=== PATIENT | male | born 2000 | race Caucasian/White ===

== ENCOUNTER 2022-11-04 19:14 | Inpatient (IN) | payer BC, MEDICAID ==
--- NOTE | 2022-11-04 19:54 | ED ---
General Adult HPI <Luca Fletcher - Last Filed: 11/05/22 11:12> - General Source: police Mode of arrival: ambulatory Limitations: no limitations <Bradley Joseph - Last Filed: 11/05/22 15:44> - General Chief complaint: Psychiatric Symptoms Stated complaint: suicidal,drank bleach Time Seen by Provider: 11/04/22 19:27 - History of Present Illness Initial comments: Dictation was produced using [email or web address] dictation software. please excuse any grammatical, word or spelling errors. Chief Complaint: 22-year-old male presents emergency department for attempted suicide History of Present Illness: 22-year-old nice petition by law enforcement. Patient allegedly held a knife to his neck. He states he wanted to kill himself because he is depressed. She feels suicidal. He tried to kill himself multiple times today according to law enforcement at the bedside. Patient also was able to drink approximately 2 ounces of bleach prior to being apprehended by law enforcement. Patient has any visual or auditory hallucinations. The ROS documented in this emergency department record has been reviewed and confirmed by me. Those systems with pertinent positive or negative responses henry ve been documented in the HPI. All other systems are other negative and/or noncontributory. PHYSICAL EXAM: General Impression: Alert and oriented x3, not in acute distress HEENT: Normocephalic atraumatic, extra-ocular movements intact, pupils equal and reactive to light bilaterally, mucous membranes moist. Cardiovascular: Heart regular rate and rhythm Chest: Able to complete full sentences, no retractions, no tachypnea Abdomen: abdomen soft, non-tender, non-distended, no organomegaly Musculoskeletal: Pulses present and equal in all extremities, no peripheral edema Motor: no focal deficits noted Neurological: CN II-XII grossly intact, no focal motor or sensory deficits noted Skin: Intact with no visualized rashes Psych: Flattened affect ED course: 22-year-old well-appearing male presents emergency department for suicidal attempt. Patient has no signs of traumatic injuries to his body. He did however report trach in approximately 2 ounces worth of bleach. He is not showing signs of respiratory distress. No abdominal pain. Nursing notes and chart review was performed Case is discussed with poison control recommended tox workup and 6 hour observation for GI and respiratory symptoms. My EKG interpretation: Ventricular rate 84, sinus rhythm,. Interval 171, QRS 114, QTc 47. No FL prolongation, no QTC prolongation, no ST or T-wave changes noted. . Overall, this EKG is unremarkable Was pt. sent in by a medical professional or institution (TALIA Hwang, LEAD ARCHITECT, urgent care, hospital, or fdc...) When possible be specific @ -Law enforcement Did you speak to anyone other than the patient for history (EMS, parent, family, police, friend...)? What history was obtained from this source @ -Law enforcement Did you review nursing and triage notes (agree or disagree)? Why? @ -I reviewed and agree with nursing and triage notes Were old charts reviewed (outside hosp., previous admission, EMS record, old EKG, old radiological studies, urgent care reports/EKG's, fdc records)? Report findings @ -No old charts were reviewed Differential Diagnosis (chest pain, altered mental status, abdominal pain women, abdominal pain men, vaginal bleeding, musculoskeletal, weakness, fever, dyspnea, syncope, headache, dizziness, GI bleed, back pain, seizure, CVA, palpatations, mental health)? @ -Differential Mental Health: Depression, anxiety, bipolar, psychosis, schizophrenia, borderline personality, situational depression, adjustment disorder, behavioral disorder, brain tumor, malingering, substance abuse, encephalopathy, medication reaction, dementia, hypothyroidism, degenerative neurologic disorder, lupus.... This is not meant to be all-inclusive list EKG interpreted by me (3pts min.). @ -See above X-rays interpreted by me (1pt min.). @ -None done CT interpreted by me (1pt min.). @ -None done U/S interpreted by me (1pt. min.). @ -None done What testing was considered but not performed or refused? (CT, X-rays, U/S, labs)? Why? @ -See above What meds were considered but not given or refused? Why? @ -See above Did you discuss the management of the patient with other professionals (professionals i.e. TALIA Hwang, LEAD ARCHITECT, lab, RT, psych nurse, outreach and education social worker, clam bed laborer, teacher, community services officer, rifle case repairer)? Give summary @ -Case discussed with poison control Was smoking cessation discussed for >3mins.? @ -No Was critical care preformed (if so, how long)? @ -33 minutes Were there social determinants of health that impacted care today? How? (Homelessness, low income, unemployed, alcoholism, drug addiction, transportation, low edu. Level, literacy, decrease access to med. care, long term, rehab)? @ -No Was there de-escalation of care discussed even if they declined (Discuss DNR or withdrawal of care, Hospice)? DNR status @ -No What co-morbidities impacted this encounter? (DM, HTN, Smoking, COPD, CAD, Cancer, CVA, ARF, Chemo, Hep., AIDS, mental health diagnosis, sleep apnea, morbid obesity)? @ -None Was patient admitted / discharged? Hospital course, mention meds given and route, prescriptions, significant lab abnormalities, going to OR and other pertinent info. @ -22 Year-old male presents emergency Department with law enforcement for psychiatric evaluation and caustic substance ingestion. Vital signs are within acceptable limits at baseline. Physical examination benign. Patient not showing signs of distress. Labs are unremarkable. Tox labs are negative. Patient will be observed in emergency department for 6 hours and then will be cleared for EPS evaluation. Undiagnosed new problem with uncertain prognosis? @ -No Drug Therapy requiring intensive monitoring for toxicity (Heparin, Nitro, Ins ulin, Cardizem)? @ -No Were any procedures done? @ -No Diagnosis/symptom? Acute, or Chronic, or Acute on Chronic? Uncomplicated (without systemic symptoms) or Complicated (systemic symptoms)? @ -1. Acute overdose, 2. Psychosis Side effects of treatment? @ -No Exacerbation, Progression, or Severe Exacerbation? @ -No Poses a threat to life or bodily function? How? (Chest pain, [place], [place], pneumonia, PE, COPD, DKA, ARF, appy, cholecystitis, CVA, Diverticulitis, Homicidal, Suicidal, threat to staff... and all critical care pts) @ -yes (Bradley Joseph) - Related Data Home Medications Medication Instructions Recorded Confirmed Dextroamphetamine Sulfate 20 mg PO DAILY 11/05/22 11/05/22 [Dexedrine] Escitalopram [Lexapro] 10 mg PO TID 11/05/22 11/05/22 Mirtazapine [Remeron] 15 mg PO HS 11/05/22 11/05/22 hydrOXYzine pamoate [Vistaril] 50 mg PO Q6H PRN 11/05/22 11/05/22 Allergies Allergy/AdvReac Type Severity Reaction Status Date / Time No Known Allergies Allergy Verified 11/05/22 09:35 Review of Systems ROS Other: All systems not noted in ROS Statement are negative. <Luca Fletcher - Last Filed: 11/05/22 11:12> ROS Other: All systems not noted in ROS Statement are negative. <Bradley Joseph - Last Filed: 11/05/22 15:44> ROS Statement: Those systems with pertinent positive or pertinent negative responses have been documented in the HPI. Past Medical History Past Medical History: No Reported History History of Any Multi-Drug Resistant Organisms: None Reported Past Surgical History: No Surgical Hx Reported Past Psychological History: Anxiety, Depression, PTSD Smoking Status: Never smoker Past Alcohol Use History: None Reported Past Drug Use History: None Reported <Bradley Joseph - Last Filed: 11/05/22 15:44> General Exam Limitations: no limitations <Bradley Joseph - Last Filed: 11/05/22 15:44> Course Vital Signs 11/04/22 11/05/22 19:15 07:05 Temperature 98.5 F Pulse Rate 60 Respiratory 20 16 Rate Blood Pressure 145/87 O2 Sat by Pulse 96 Oximetry Medical Decision Making - Lab Data Result diagrams: 11/04/22 20:08 11/04/22 20:08 <Luca Fletcher - Last Filed: 11/05/22 11:12> - Lab Data Result diagrams: 11/04/22 20:08 11/04/22 20:08 <Bradley Joseph - Last Filed: 11/05/22 15:44> - Medical Decision Making Was patient admitted / discharged? Hospital course, mention meds given and route, prescriptions, significant lab abnormalities, going to OR and other pertinent info. @ -Patient was signed out to me at 7 AM. Patient was going to be transferred to another facility but that authorization to admit the patient. EPS came down and admitted patient to this facility. Undiagnosed new problem with uncertain prognosis? @ -[No] Drug Therapy requiring intensive monitoring for toxicity (Heparin, Nitro, Insulin, Cardizem)? @ -[No] Were any procedures done? @ -[No] Diagnosis/symptom? @ -Depression, suicidal ideation Acute, or Chronic, or Acute on Chronic? @ -Acute Uncomplicated (without systemic symptoms) or Complicated (systemic symptoms)? @ -Complicated Side effects of treatment? @ -[No] Exacerbation, Progression, or Severe Exacerbation? @ -[No] Poses a threat to life or bodily function? How? (Chest pain, [place], MO, pneumonia, PE, COPD, DKA, ARF, appy, cholecystitis, CVA, Diverticulitis, Homicidal, Hussein icidal, threat to staff... and all critical care pts) @ -Yes patient could commit suicide. (Luca Fletcher) - Lab Data Lab Results 11/04/22 11/04/22 11/04/22 Range/Units 20:08 20:08 20:08 WBC 8.7 (3.8-10.6) k/uL RBC 5.03 (4.30-5.90) m/uL Hgb 14.8 (13.0-17.5) gm/dL Hct 43.6 (39.0-53.0) % MCV 86.6 (80.0-100.0) fL MCH 29.4 (25.0-35.0) pg MCHC 34.0 (31.0-37.0) g/dL RDW 13.2 (11.5-15.5) % Plt Count 317 (150-450) k/uL MPV 7.6 Neutrophils % 73 % Lymphocytes % 18 % Monocytes % 6 % Eosinophils % 1 % Basophils % 1 % Neutrophils # 6.3 (1.3-7.7) k/uL Lymphocytes # 1.5 (1.0-4.8) k/uL Monocytes # 0.5 (0-1.0) k/uL Eosinophils # 0.1 (0-0.7) k/uL Basophils # 0.1 (0-0.2) k/uL PT 11.2 (9.0-12.0) sec INR 1.1 (<1.2) APTT 24.0 (22.0-30.0) sec Sodium 141 (137-145) mmol/L Potassium 4.4 (3.5-5.1) mmol/L Chloride 105 (98-107) mmol/L Carbon Dioxide 25 (22-30) mmol/L Anion Gap 11 mmol/L BUN 8 L (9-20) mg/dL Creatinine 0.84 (0.66-1.25) mg/dL Est GFR (CKD-EPI)AfAm >90 (>60 ml/min/1.73 sqM) Est GFR (CKD-EPI)NonAf >90 (>60 ml/min/1.73 sqM) Glucose 91 (74-99) mg/dL Osmolality 296 (280-301) mosm/kg Plasma Lactic Acid Martinez (0.7-2.0) mmol/L Calcium 9.6 (8.4-10.2) mg/dL Total Bilirubin 0.9 (0.2-1.3) mg/dL AST 120 H (17-59) U/L ALT 162 H (4-49) U/L Alkaline Phosphatase 60 (38-126) U/L Total Protein 7.8 (6.3-8.2) g/dL Albumin 4.8 (3.5-5.0) g/dL Urine Color Urine Appearance (Clear) Urine pH (5.0-8.0) Ur Specific [place] (1.001-1.035) Urine Protein (Negative) Urine Glucose (UA) (Negative) Urine Ketones (Negative) Urine Blood (Negative) Urine Nitrite (Negative) Urine Bilirubin (Negative) Urine Urobilinogen (<2.0) mg/dL Ur Leukocyte Esterase (Negative) Salicylates <1.0 mg/dL Urine Opiates Screen (NotDetected) Ur Oxycodone Screen (NotDetected) Urine Methadone Screen (NotDetected) Ur Propoxyphene Screen (NotDetected) Acetaminophen <10.0 ug/mL Ur Barbiturates Screen (NotDetected) U Tricyclic Antidepress (NotDetected) Ur Phencyclidine Scrn (NotDetected) Ur Amphetamines Screen (NotDetected) U Methamphetamines Scrn (NotDetected) U Benzodiazepines Scrn (NotDetected) Urine Cocaine Screen (NotDetected) U Marijuana (THC) Screen (NotDetected) Serum Alcohol <10 mg/dL Coronavirus (PCR) (Not Detectd) 11/04/22 11/04/22 11/05/22 Range/Units 20:08 20:08 01:55 WBC (3.8-10.6) k/uL RBC (4.30-5.90) m/uL Hgb (13.0-17.5) gm/dL Hct (39.0-53.0) % MCV (80.0-100.0) fL MCH (25.0-35.0) pg MCHC (31.0-37.0) g/dL RDW (11.5-15.5) % Plt Count (150-450) k/uL MPV Neutrophils % % Lymphocytes % % Monocytes % % Eosinophils % % Basophils % % Neutrophils # (1.3-7.7) k/uL Lymphocytes # (1.0-4.8) k/uL Monocytes # (0-1.0) k/uL Eosinophils # (0-0.7) k/uL Basophils # (0-0.2) k/uL PT (9.0-12.0) sec INR (<1.2) APTT (22.0-30.0) sec Sodium (137-145) mmol/L Potassium (3.5-5.1) mmol/L Chloride (98-107) mmol/L Carbon Dioxide (22-30) mmol/L Anion Gap mmol/L BUN (9-20) mg/dL Creatinine (0.66-1.25) mg/dL Est GFR (CKD-EPI)AfAm (>60 ml/min/1.73 sqM) Est GFR (CKD-EPI)NonAf (>60 ml/min/1.73 sqM) Glucose (74-99) mg/dL Osmolality (280-301) mosm/kg Plasma Lactic Acid Martinez 1.0 (0.7-2.0) mmol/L Calcium (8.4-10.2) mg/dL Total Bilirubin (0.2-1.3) mg/dL AST (17-59) U/L ALT (4-49) U/L Alkaline Phosphatase (38-126) U/L Total Protein (6.3-8.2) g/dL Albumin (3.5-5.0) g/dL Urine Color Yellow Urine Appearance Clear (Clear) Urine pH 6.5 (5.0-8.0) Ur Specific [place] 1.021 (1.001-1.035) Urine Protein Trace H (Negative) Urine Glucose (UA) Negative (Negative) Urine Ketones 2+ H (Negative) Urine Blood Negative (Negative) Urine Nitrite Negative (Negative) Urine Bilirubin Negative (Negative) Urine Urobilinogen 3.0 (<2.0) mg/dL Ur Leukocyte Esterase Negative (Negative) Salicylates mg/dL Urine Opiates Screen Not Detected (NotDetected) Ur Oxycodone Screen Not Detected (NotDetected) Urine Methadone Screen Not Detected (NotDetected) Ur Propoxyphene Screen Not Detected (NotDetected) Acetaminophen ug/mL Ur Barbiturates Screen Not Detected (NotDetected) U Tricyclic Antidepress Not Detected (NotDetected) Ur Phencyclidine Scrn Not Detected (NotDetected) Ur Amphetamines Screen Detected H (NotDetected) U Methamphetamines Scrn Not Detected (NotDetected) U Benzodiazepines Scrn Not Detected (NotDetected) Urine Cocaine Screen Not Detected (NotDetected) U Marijuana (THC) Screen Not Detected (NotDetected) Serum Alcohol mg/dL Coronavirus (PCR) (Not Detectd) 11/05/22 Range/Units 02:10 WBC (3.8-10.6) k/uL RBC (4.30-5.90) m/uL Hgb (13.0-17.5) gm/dL Hct (39.0-53.0) % MCV (80.0-100.0) fL MCH (25.0-35.0) pg MCHC (31.0-37.0) g/dL RDW (11.5-15.5) % Plt Count (150-450) k/uL MPV Neutrophils % % Lymphocytes % % Monocytes % % Eosinophils % % Basophils % % Neutrophils # (1.3-7.7) k/uL Lymphocytes # (1.0-4.8) k/uL Monocytes # (0-1.0) k/uL Eosinophils # (0-0.7) k/uL Basophils # (0-0.2) k/uL PT (9.0-12.0) sec INR (<1.2) APTT (22.0-30.0) sec Sodium (137-145) mmol/L Potassium (3.5-5.1) mmol/L Chloride (98-107) mmol/L Carbon Dioxide (22-30) mmol/L Anion Gap mmol/L BUN (9-20) mg/dL Creatinine (0.66-1.25) mg/dL Est GFR (CKD-EPI)AfAm (>60 ml/min/1.73 sqM) Est GFR (CKD-EPI)NonAf (>60 ml/min/1.73 sqM) Glucose (74-99) mg/dL Osmolality (280-301) mosm/kg Plasma Lactic Acid Martinez (0.7-2.0) mmol/L Calcium (8.4-10.2) mg/dL Total Bilirubin (0.2-1.3) mg/dL AST (17-59) U/L ALT (4-49) U/L Alkaline Phosphatase (38-126) U/L Total Protein (6.3-8.2) g/dL Albumin (3.5-5.0) g/dL Urine Color Urine Appearance (Clear) Urine pH (5.0-8.0) Ur Specific [place] (1.001-1.035) Urine Protein (Negative) Urine Glucose (UA) (Negative) Urine Ketones (Negative) Urine Blood (Negative) Urine Nitrite (Negative) Urine Bilirubin (Negative) Urine Urobilinogen (<2.0) mg/dL Ur Leukocyte Esterase (Negative) Salicylates mg/dL Urine Opiates Screen (NotDetected) Ur Oxycodone Screen (NotDetected) Urine Methadone Screen (NotDetected) Ur Propoxyphene Screen (NotDetected) Acetaminophen ug/mL Ur Barbiturates Screen (NotDetected) U Tricyclic Antidepress (NotDetected) Ur Phencyclidine Scrn (NotDetected) Ur Amphetamines Screen (NotDetected) U Methamphetamines Scrn (NotDetected) U Benzodiazepines Scrn (NotDetected) Urine Cocaine Screen (NotDetected) U Marijuana (THC) Screen (NotDetected) Serum Alcohol mg/dL Coronavirus (PCR) Not Detected (Not Detectd) Disposition Time of Disposition: 11:12 <Luca Fletcher - Last Filed: 11/05/22 11:12> <Bradley Joseph - Last Filed: 11/05/22 15:44> Clinical Impression: Depression, Suicidal ideation Disposition: ADMITTED IP TO THIS HOSP
[2022-11-04 20:22] LABS: Basophils # (A) 0.1 k/uL (0-0.2); Basophils % (A) 1 %; Eosinophils # (A) 0.1 k/uL (0-0.7); Eosinophils % (A) 1 %; HCT 43.6 % (39.0-53.0); HGB 14.8 gm/dL (13.0-17.5); Lymphocytes # (A) 1.5 k/uL (1.0-4.8); Lymphocytes % (A) 18 %; MCH 29.4 pg (25.0-35.0); MCV 86.6 fL (80.0-100.0); Mean Platelet Volume 7.6; Monocytes # (A) 0.5 k/uL (0-1.0); Monocytes % (A) 6 %; Neutrophils # (A) 6.3 k/uL (1.3-7.7); Neutrophils % (A) 73 %; Platelet Count 317 k/uL (150-450); RBC 5.03 m/uL (4.30-5.90); RDW 13.2 % (11.5-15.5); WBC 8.7 k/uL (3.8-10.6)
[2022-11-04 20:38] LABS: ALT 162 U/L (4-49); AST 120 U/L (17-59); Acetaminophen <10.0 ug/mL; African American GFR (CKD) >90 (>60 ml/min/1.73 sqM); Albumin 4.8 g/dL (3.5-5.0); Alcohol <10 mg/dL; Alkaline Phosphatase 60 U/L (38-126); Anion Gap 11 mmol/L; Blood Urea Nitrogen 8 mg/dL (9-20); Calcium 9.6 mg/dL (8.4-10.2); Carbon Dioxide 25 mmol/L (22-30); Chloride 105 mmol/L (98-107); Glucose 91 mg/dL (74-99); Non-African American GFR(CKD) >90 (>60 ml/min/1.73 sqM); Potassium 4.4 mmol/L (3.5-5.1); Salicylate <1.0 mg/dL; Sodium 141 mmol/L (137-145); Total Bilirubin 0.9 mg/dL (0.2-1.3); Total Protein 7.8 g/dL (6.3-8.2)
[2022-11-04 20:48] LABS: INR 1.1 (<1.2); Prothrombin Time 11.2 sec (9.0-12.0)
[2022-11-04 21:05] LABS: Amphetamine Screen,Urine Detected (NotDetected); Barbiturate Screen,Urine Not Detected (NotDetected); Benzodiazepines Screen,Urine Not Detected (NotDetected); Cocaine Screen,Urine Not Detected (NotDetected); Methadone Screen, Urine Not Detected (NotDetected); Opiate Screen,Urine Not Detected (NotDetected); Oxycodone Screen, Urine Not Detected (NotDetected); Phencyclidine Screen,Urine Not Detected (NotDetected); Tricyclic Antidepressant,Urine Not Detected (NotDetected); Urn Cannabinoid Scrn Not Detected (NotDetected)
[2022-11-05 02:04] LABS: Appearance,Urine Clear (Clear); Bilirubin,Urine Negative (Negative); Blood,Urine Negative (Negative); Color,Urine Yellow; Glucose,Urine (UA) Negative (Negative); Ketones,Urine 2+ (Negative); Leukocyte Esterase,Urine Negative (Negative); Nitrite,Urine Negative (Negative); PH, Urine 6.5 (5.0-8.0); Protein,Urine Trace (Negative); Specific Gravity,Urine 1.021 (1.001-1.035)
[2022-11-05] MEDS ORDERED: MAGNESIUM HYDROXIDE 2,400 MG/10 ML CUP PO PRN (11:22)
[2022-11-05] MEDS ORDERED: MAG HYDROX/AL HYDROX/SIMETH 30 ML CUP PO PRN (11:22)
[2022-11-05] MEDS ORDERED: HALOPERIDOL LACTATE 5 MG/ML 1 ML VIAL IM PRN (11:22)
[2022-11-05] MEDS ORDERED: ACETAMINOPHEN TAB 325 MG TAB PO PRN (11:22)
[2022-11-05] MEDS ORDERED: LORazepam 2 MG/ML INJ IM PRN (11:24)
[2022-11-05] MEDS ORDERED: haloperidoL 5 MG TAB PO PRN (12:45)
[2022-11-05] MEDS ORDERED: haloperidoL 5 MG TAB PO SCH (13:00)
[2022-11-05] MEDS ORDERED: DULoxetine HCL 30 MG CAPSULE.DR PO SCH (14:45)
[2022-11-05] MEDS: LITHIUM CARBONATE 150 MG CAP PO SCH ×2 (16:30→20:14)
[2022-11-05] MEDS: SERTRALINE 50 MG TAB PO SCH (16:31)
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
--- NOTE | 2022-11-05 17:51 | P.PN ---
Progress Note - Text Progress Note Date: 11/05/22 Attempted to see patient on mental health unit at 1149 a.m. this morning, was informed by nursing staff that patient was unavailable to be evaluated by medical team at this time as he was with psychiatrist.
[2022-11-05] MEDS: MIRTAZAPINE 15 MG TAB PO SCH (20:14)
--- NOTE | 2022-11-06 01:01 | P.PN ---
Progress Note - Text Progress Note Date: 11/06/22 Attempted to see the patient in the mental health unit at 2100. The patient refused to be seen or be evaluated.
[2022-11-06 07:04] LABS: Basophils # (A) 0.1 k/uL (0-0.2); Basophils % (A) 1 %; Eosinophils # (A) 0.3 k/uL (0-0.7); Eosinophils % (A) 4 %; HCT 45.8 % (39.0-53.0); HGB 15.3 gm/dL (13.0-17.5); Lymphocytes # (A) 2.5 k/uL (1.0-4.8); Lymphocytes % (A) 36 %; MCH 29.3 pg (25.0-35.0); MCHC 33.3 g/dL (31.0-37.0); MCV 88.1 fL (80.0-100.0); Mean Platelet Volume 7.6; Monocytes # (A) 0.6 k/uL (0-1.0); Monocytes % (A) 8 %; Neutrophils # (A) 3.5 k/uL (1.3-7.7); Neutrophils % (A) 50 %; Platelet Count 317 k/uL (150-450); RDW 13.2 % (11.5-15.5); WBC 7.1 k/uL (3.8-10.6)
[2022-11-06 07:20] LABS: ALT 136 U/L (4-49); AST 87 U/L (17-59); African American GFR (CKD) >90 (>60 ml/min/1.73 sqM); Albumin 4.5 g/dL (3.5-5.0); Alkaline Phosphatase 57 U/L (38-126); Anion Gap 10 mmol/L; Blood Urea Nitrogen 7 mg/dL (9-20); Calcium 9.4 mg/dL (8.4-10.2); Carbon Dioxide 28 mmol/L (22-30); Chloride 105 mmol/L (98-107); Glucose 90 mg/dL (74-99); Non-African American GFR(CKD) >90 (>60 ml/min/1.73 sqM); Potassium 4.5 mmol/L (3.5-5.1); Sodium 143 mmol/L (137-145); Total Bilirubin 0.7 mg/dL (0.2-1.3); Total Protein 7.6 g/dL (6.3-8.2)
[2022-11-06] MEDS: LORazepam 1 MG TAB PO PRN (08:38)
[2022-11-06] MEDS: LITHIUM CARBONATE 150 MG CAP PO SCH ×2 (08:39→21:21)
[2022-11-06] MEDS: SERTRALINE 50 MG TAB PO SCH (08:39)
[2022-11-06] MEDS ORDERED: NICOTINE 14MG/24HR PATCH TRANSDERM SCH (09:00)
[2022-11-06] MEDS: hydrOXYzine pamoate 25 MG CAP PO PRN ×2 (09:58→20:21)
[2022-11-06 12:01] LABS: Chol/HDL Ratio 4.86 Ratio; LDL Cholesterol,Calculated 103.9 mg/dL (0.0-131.0)
[2022-11-06] MEDS: MIRTAZAPINE 15 MG TAB PO SCH (21:21)
--- NOTE | 2022-11-06 22:29 | P.CONS ---
History of Present Illness - Reason for Consult Consult date: 11/06/22 - History of Present Illness The patient is a 22-year-old male with a PMH of liver disease who was brought to the emergency room petitioned by the police for depression and suicidal ideation. The patient was admitted to the mental health unit where he was seen and evaluated. The patient reported that he has been struggling with thoughts of depression and suicide for quite some time. Patient denied alcohol, tobacco, or substance use. He denied any physical complaints at the time of interview. Denied experiencing ptosis, and, shortness of breath, fever, chills, cough, nausea, vomiting, abdominal pain, diarrhea. Review of systems: Pertinent positives and negatives as discussed in HPI, a complete review of syst ems was performed and all other systems are negative. Physical examination: General: non toxic, no distress, appears at stated age, normal weight Derm: no unusual rashes/lesions, no unusual ecchymoses, warm, dry Head: atraumatic, normocephalic, symmetric Eyes: EOMI, no lid lag, anicteric sclera ENT: Nose and ears atraumatic, no thrush, no pharyngeal erythema Neck: trachea midline, supple Mouth: no lip lesion, mucus membranes moist Cardiovascular: S1S2 reg, no murmur, no edema Lungs: CTA bilateral, no rhonchi, no rales , no accessory muscle use Abdominal: soft, nontender to palpation, no guarding Ext: no gross muscle atrophy, no contractures, Neuro: No gross focal neuro deficits noted Psych: Alert, oriented, appropriate affect Assessment: Abnormal LFTs Depression with suicidal ideation Morbid obesity Imaging: EKG in the emergency room revealed sinus rhythm with intraventricular conduction delay at 84 bpm. Data Review: Laboratory evaluation was reviewed with WBC count 7.1, hemoglobin 15.3, platelets 317, sodium 143, potassium 4.5, BUN 7, creatinine 0.78, AST 87, ALT 136, lactic acid 1.0, unremarkable UA, urine tox cause other for amphetamines, and coronavirus PCR negative. Plan: Abnormal LFTs likely secondary to nonalcoholic fatty liver disease Defer management of depression with suicidal ideation to primary psychiatry service Thank you for allowing us to participate in the care of this patient. We will follow peripherally. Do not hesitate to contact us with questions. Someone can be reached from the [facility] hospitalist group at all hours of the day a t [phone]. Past Medical History Past Medical History: No Reported History History of Any Multi-Drug Resistant Organisms: None Reported Past Surgical History: No Surgical Hx Reported Past Psychological History: Anxiety, Depression, PTSD Smoking Status: Never smoker Past Alcohol Use History: None Reported Past Drug Use History: None Reported - Past Family History Father Family Medical History: Liver Disease Medications and Allergies Home Medications Medication Instructions Recorded Confirmed Type Dextroamphetamine Sulfate 20 mg PO DAILY 11/05/22 11/05/22 History [Dexedrine] Escitalopram [Lexapro] 10 mg PO TID 11/05/22 11/05/22 History Mirtazapine [Remeron] 15 mg PO HS 11/05/22 11/05/22 History hydrOXYzine pamoate [Vistaril] 50 mg PO Q6H PRN 11/05/22 11/05/22 History Allergies Allergy/AdvReac Type Severity Reaction Status Date / Time No Known Allergies Allergy Verified 11/05/22 09:35 Physical Exam Vitals: Vital Signs Temp Pulse Resp BP Pulse Ox 11/06/22 09:00 96.9 F L 98 18 121/84 97 Results CBC & Chem 7: 11/06/22 06:26 11/06/22 06:26 Labs: Abnormal Lab Results - Last 24 Hours (Table) 11/06/22 Range/Units 06:26 BUN 7 L (9-20) mg/dL AST 87 H (17-59) U/L ALT 136 H (4-49) U/L HDL Cholesterol 33.30 L (40.00-60.00) mg/dL
[2022-11-07] MEDS: SERTRALINE 100 MG TAB PO SCH (09:38)
[2022-11-07] MEDS: LITHIUM CARBONATE 150 MG CAP PO SCH ×2 (09:38→20:42)
[2022-11-07] MEDS: MIRTAZAPINE 15 MG TAB PO SCH (20:42)
[2022-11-07] MEDS: LORazepam 1 MG TAB PO PRN (20:43)
--- NOTE | 2022-11-07 23:42 | P.PN ---
Progress Note - Text Progress Note Date: 11/07/22 Interval history: Patient was directable and agreeable to speak with song writer. He reports feeling tired, reports he did not sleep well last night due to commotion on the unit. At this time, patient denies any suicidal or homicidal ideation, intent or plan. Denies any auditory or visual hallucinations. Patient denies any side effects from the medications and has been compliant with meds. Mental status exam: General Appearance: Patient appears to be stated age is alert, directable, and cooperative. Behavior: No agitated behavior. Patient is calm and directable Speech: Patient's speech is fluent and non-pressured. Mood/Affect: Mood is tired, affect is congruent and constricted. Suicidality/Homicidality: Patient denies having any suicidal or homicidal ideation intent or plan. Perceptions: Patient denies any auditory or visual hallucinations. Though content/process: There is no evidence of any delusional thought content and thought process is linear and goal-directed. Memory and concentration: AOX3, grossly intact for the purposes of this session Judgment and insight: improving mildly Assessment/Plan: Continue with current diagnosis. Patient continues to meet criteria for inpatient psychiatric admission for symptom stabilization and safety. Patient will be maintained on current psychotropic medication regimen. Monitor for medication compliance and for any psychotropic medication side effects. Will continue to monitor ongoing response to treatment. Encouraged participation in milieu.
--- NOTE | 2022-11-07 23:45 | P.PN ---
Progress Note - Text Progress Note Date: 11/06/22 Interval history: Patient was found playing cards with peers and directable and agreeable to speak with telegraphic typewriter operator chief. He reports mood is improving but continues to struggle with anxiety, panic attacks, heart racing. At this time, patient denies any suicidal or homicidal ideation, intent or plan. Denies any auditory or visual hallucinations. Patient denies any side effects from the medications and has been compliant with meds. Mental status exam: General Appearance: Patient appears to be stated age is alert, directable, and cooperative. Behavior: No agitated behavior. Patient is calm and directable Speech: Patient's speech is fluent and non-pressured. Mood/Affect: Mood is anxious, affect is congruent and constricted. Suicidality/Homicidality: Patient denies having any suicidal or homicidal ideation intent or plan. Perceptions: Patient denies any auditory or visual hallucinations. Though content/process: There is no evidence of any delusional thought content and thought process is linear and goal-directed. Memory and concentration: AOX3, grossly intact for the purposes of this session Judgment and insight: improving mildly Assessment/Plan: Continue with current diagnosis. Patient continues to meet criteria for inpatient psychiatric admission for symptom stabilization and safety. Increase Zoloft to 100 mg daily starting tomorrow AM for depression/anxiety. Monitor for medication compliance and for any psychotropic medication side effects. Will continue to monitor ongoing response to treatment. Encouraged participation in milieu.
[2022-11-08] MEDS: hydrOXYzine pamoate 25 MG CAP PO PRN (07:14)
[2022-11-08] MEDS: SERTRALINE 100 MG TAB PO SCH (08:41)
[2022-11-08] MEDS: LITHIUM CARBONATE 150 MG CAP PO SCH (08:41)
--- NOTE | 2022-11-08 13:24 | P.PN ---
Progress Note - Text Progress Note Date: 11/08/22 Interval History: Patient was seen today for psychiatric follow up and was agreeable to speak with scientific writer in the office. Patient states that he is still feeling somewhat anxious during the day and particularly this morning. He claims that after taking his medications used during better. He states that the lithium and Zoloft have been helping him so far. He states that he has been able to reflect back on what had occurred prior to coming into the hospital. He states that he may be getting charged for what had occurred and will need to be speaking with law enforcement upon discharge. He states that he is trying to go to groups and socializes much of the 10. States that he did not sleep well last night and was agreeable to have his Remeron increased. At this time he is denying any auditory or visual hallucinations. Not endorsing any delusions or paranoia. He states that he is not having any suicidal or homicidal ideations intent or plan. Mental Status Exam: General Appearance: Patient appears to be [tall, overwight,] stated age is alert, [directable, and attempts to cooperate]. Patient appears to have [fair] hygiene and grooming. Behavior: Patient is seated without any agitated behavior. []cooperative Speech: Patient's speech is [fluent and nonpressured.] soft tone, improving mildly. Mood/Affect: Patient reports their mood is [a bit better], affect is congruent and constricted, improving mildly. Suicidality/Homicidality: Patient denies having any homicidal ideation intent or plan. [Denies any suicidal ideations intent or plan] Perceptions: Patient denies any visual hallucinations [and denies any auditory hallucinations] Though content/process: [There is no evidence of any delusional thought content and thought process is linear and goal-directed.] Memory and concentration: AOX3, grossly intact for the purposes of this session Judgment and insight: improving mildly IMPRESSIONS: []Major depressive disorder without psychotic features anxiety disorder unspecified PLAN: -Patient is admitted under [voluntary] status to [facility]HU for stabilization of psych iatric symptoms and safety. -Medications : continue zoloft 100 mg daily for mood/anxiety, increase remeron 30 mg qhs for sleep/mood, increase lithium 300 mg bid for suicidal thoughts/mood stabilization. vistaril prn for anxiety. -Ativan [and Haldol] PRN for agitation/aggression -NRT - not needed as patient does not smoke -SW on board for discharge planning. Encourage patient to participate in groups to work on coping skills. likely discharge tomorrow vs tuesday to lawenforcement as patient is a [place].
[2022-11-08] MEDS: LITHIUM CARBONATE 300 MG CAP PO SCH (21:32)
[2022-11-08] MEDS: MIRTAZAPINE 15 MG TAB PO SCH (21:32)
[2022-11-09] MEDS: LITHIUM CARBONATE 300 MG CAP PO SCH ×2 (08:27→21:20)
[2022-11-09] MEDS: SERTRALINE 100 MG TAB PO SCH (08:27)
--- NOTE | 2022-11-09 12:43 | P.PN ---
Progress Note - Text Progress Note Date: 11/09/22 Interval History: Patient was seen today for psychiatric follow up and was seen lying in his bed and was agreeable to speak with card writer hand in the office. Patient states that he is doing a bit better today. He claims that he is still having some anxiety however mainly related to his discharge and spoke more about possibly going to correction. He claims that he has been trying to go to some groups and participate as best as he can. He claims that the medications have been helping much more with his depression. He states that he was able to sleep fairly last night about 6 hours. He states that he is trying to go to groups and socializes as much as he can. we spoke abouit the discharge planning likely tomorrow and the need for checking lithium level in the morning. At this time he is denying any auditory or visual hallucinations. Not endorsing any delusions or paranoia. He states that he is not having any suicidal or homicidal ideations intent or plan. Mental Status Exam: General Appearance: Patient appears to be tall, overwight, stated age is alert, directable, and attempts to cooperate. Patient appears to have fair hygiene and grooming. Behavior: Patient is seated without any agitated behavior. Attempts to be cooperative Speech: Patient's speech is fluent and nonpressured. improving mildly. Mood/Affect: Patient reports their mood is a bit better but still anxious, affect is congruent and constricted, improving mildly. Suicidality/Homicidality: Patient denies having any homicidal ideation intent or plan. Denies any suicidal ideations intent or plan Perceptions: Patient denies any visual hallucinations and denies any auditory hallucinations Though content/process: There is no evidence of any delusional thought content and thought process is linear and goal-directed. Memory and concentration: AOX3, grossly intact for the purposes of this session Judgment and insight: improving mildly IMPRESSIONS: Major depressive disorder without psychotic features anxiety disorder unspecified PLAN: -Patient is admitted under voluntary status to MHU for stabilization of p sychiatric symptoms and safety. -Medications : continue zoloft 100 mg daily for mood/anxiety, remeron 30 mg qhs for sleep/mood, lithium 300 mg bid for suicidal thoughts/mood stabilization. vistaril prn for anxiety. -check lithium level tomorrow morning before discharge -Ativan and Haldol PRN for agitation/aggression -NRT - not needed as patient does not smoke -SW on board for discharge planning. Encourage patient to participate in groups to work on coping skills. likely discharge tomorrow after patient has lithium level drawn to law enforcement as patient is a correction hold.
[2022-11-09] MEDS: MIRTAZAPINE 15 MG TAB PO SCH (21:20)
[2022-11-09] MEDS: LORazepam 1 MG TAB PO PRN (21:23)
[2022-11-10] MEDS: LORazepam 1 MG TAB PO PRN ×2 (05:17→13:31)
[2022-11-10 05:40] VITALS: BP 158/92; PULSE 96; RESP 20; TEMP 97.7
[2022-11-10] MEDS: hydrOXYzine pamoate 25 MG CAP PO PRN (09:14)
[2022-11-10] MEDS: SERTRALINE 100 MG TAB PO SCH (09:36)
[2022-11-10] MEDS: LITHIUM CARBONATE 300 MG CAP PO SCH (09:37)
[2022-11-10 10:46] LABS: Appearance,Urine Clear (Clear); Bilirubin,Urine Negative (Negative); Blood,Urine Negative (Negative); Color,Urine Yellow; Glucose,Urine (UA) Negative (Negative); Ketones,Urine Negative (Negative); Leukocyte Esterase,Urine Negative (Negative); Nitrite,Urine Negative (Negative); PH, Urine 5.5 (5.0-8.0); Protein,Urine Negative (Negative); Specific Gravity,Urine 1.018 (1.001-1.035); Urobilinogen,Urine <2.0 mg/dL (<2.0)
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
[2022-11-10 19:29] LABS: Urine Alcohol Negative (Negative); Urine Barbiturate Negative (Negative); Urine Cocaine Negative (Negative); Urine Methadone Negative (Negative); Urine Opiates Negative (Negative); Urine Phencyclidine Negative (Negative)
== END 2022-11-10 14:25 | DRG 881 ==
LOC: EC 19:14 → 3MHU 11-05 11:19
PROVIDERS: ADMIT Psychiatry & Neurology Psychiatry; ATTEND Psychiatry & Neurology Psychiatry
DX: F32.9 Major depressive disorder, single episode, unspecified (principal); F41.9 Anxiety disorder, unspecified; F43.10 Post-traumatic stress disorder, unspecified; T54.92XA Toxic effect of unspecified corrosive substance, intentional self-harm, initial encounter; F32.A Depression, unspecified; Z53.29 Procedure and treatment not carried out because of patient's decision for other reasons; F41.0 Panic disorder [episodic paroxysmal anxiety]; F90.9 Attention-deficit hyperactivity disorder, unspecified type; K76.0 Fatty (change of) liver, not elsewhere classified; I45.9 Conduction disorder, unspecified; E66.01 Morbid (severe) obesity due to excess calories; Z20.822 Contact with and (suspected) exposure to COVID-19; Z56.0 Unemployment, unspecified; Z68.37 Body mass index [BMI] 37.0-37.9, adult; Z79.899 Other long term (current) drug therapy; Z63.4 Disappearance and death of family member; Z71.89 Other specified counseling
CPT/HCPCS: 36415; 80053; 80061; 80143; 80178; 80179; 80306; 80320; 81003; 82075; 83036; 83605; 83930; 84443; 85025; 85610; 85730; 87635; 93005; 99291